=== PATIENT | male | born 1950 | race Caucasian/White ===

== ENCOUNTER 2020-03-18 19:12 | Inpatient (IN) | payer MEDICARE, MEDICAID ==
[2020-03-18] VITALS: BP 84/42
[~2020-03-18] VITALS: Ht 175.3 cm; Wt 89.9 kg
[2020-03-18 19:16] VITALS: BP 106/62
[2020-03-18] MEDS ORDERED: ZOLOFT100 MG PO (19:41)
[2020-03-18] MEDS ORDERED: VITAMIN D3-ALO1 EACH PO (19:41)
[2020-03-18] MEDS ORDERED: FLOMAX0.4 MG PO (19:41)
[2020-03-18] MEDS ORDERED: IPRAT-ALBUT 0.5-3 ML INH ×2 (19:42→23:32)
[2020-03-18] MEDS ORDERED: VENTOLIN HFA INH8 GM INH (19:43)
[2020-03-18] MEDS ORDERED: KRISTALOSE20 GM PO (19:43)
[2020-03-18] MEDS ORDERED: LOPERAMIDE2 MG PO (19:43)
[2020-03-18] MEDS ORDERED: ROXICODONE5 MG PO (19:43)
[2020-03-18] MEDS ORDERED: POTASSIUM20 PO (19:44)
[2020-03-18] MEDS ORDERED: PROTONIX40 M1 PO (19:44)
[2020-03-18] MEDS ORDERED: TOPROL XL50 MG PO (19:44)
[2020-03-18 19:53] LABS: ABSOLUTE LYMPHOCYTES 0.9 thou/uL (0.8-5.3); ABSOLUTE NEUTROPHILS 9.9 thou/uL (1.6-8.1); BASOPHILS 0.2 %; EOSINOPHILS 0.1 %; HEMATOCRIT 36.7 % (42.0-52.0); HEMOGLOBIN 12.4 gm/dL (14.0-18.0); LYMPHOCYTES 7.2 %; MCHC 33.9 g/dL (28.0-37.0); MCV 85.6 fL (80.0-100.0); MONOCYTES 8.7 %; MPV 9.2 fl. (7.2-11.1); NUCLEATED RBCS 0 /100WBC; PLATELET COUNT* 219 thou/uL (150-400); POLYS 83.8 %; RBC 4.28 mil/uL (4.50-6.00); RDW-CV 13.5 % (10.5-14.5); WBC 11.9 thou/uL (4.0-11.0)
[2020-03-18 19:58] LABS: APTT 33.4 Seconds (25.0-31.3); INR 1.1; PROTIME 11.7 Seconds (9.20-11.50)
[2020-03-18 20:04] LABS: CREATININE 2.3 mg/dL (0.6-1.3); POTASSIUM 4.2 mmol/L (3.5-5.1)
[2020-03-18 20:18] LABS: ALBUMIN 2.9 g/dL (3.4-5.0); CK-MB MASS 0.8 ng/mL (<0.5-3.6); TOTAL BILIRUBIN 0.6 mg/dL (<0.1-1.0); TOTAL PROTEIN 8.7 g/dL (6.4-8.2)
[2020-03-18 20:19] LABS: URINE BILIRUBIN NEGATIVE (Negative); URINE BLOOD 3+ (Negative); URINE COLOR YELLOW; URINE GLUCOSE-RANDOM NEGATIVE (Negative); URINE KETONES NEGATIVE (Negative); URINE NITRITE-REFLEX NEGATIVE (Negative); URINE PROTEIN 2+ (Negative); URINE SPECIFIC GRAVITY >= 1.030 (1.005-1.030); URINE UROBILINOGEN 0.2 E.U./dl (0.2-1.0)
[2020-03-18 20:20] LABS: URINE CLARITY HAZY; URINE LEUKOCYTES-REFLEX 2+ (Negative)
[2020-03-18 20:21] LABS: BACTERIA-REFLEX >30 Many /HPF (None Seen); CASTS None Seen /LPF (None Seen); CRYSTALS None Seen /LPF (None Seen); SQUAMOUS 0-3 Few /LPF (0-3); URINE RBC 3-10 Few /HPF (0-2)
[2020-03-18 21:36] VITALS: BP 119/53
[2020-03-18 23:00] VITALS: BP 97/54
[2020-03-18] MEDS ORDERED: TUSSIN100 MG/5 M PO (23:29)
[2020-03-18] MEDS ORDERED: VITAMIN D3250 MC1 PO (23:31)
[2020-03-18 23:43] LABS: HEMATOCRIT 30.6 % (42.0-52.0); MCV 85.2 fL (80.0-100.0); MPV 8.6 fl. (7.2-11.1); NUCLEATED RBCS 0 /100WBC; PLATELET COUNT* 168 thou/uL (150-400); RBC 3.59 mil/uL (4.50-6.00); RDW-CV 13.6 % (10.5-14.5); WBC 11.1 thou/uL (4.0-11.0)
[2020-03-18 23:45] LABS: HEMOGLOBIN 10.4 gm/dL (14.0-18.0)
[2020-03-18 23:56] LABS: ALBUMIN 2.2 g/dL (3.4-5.0); CALCIUM 7.5 mg/dL (8.5-10.1); POTASSIUM 3.8 mmol/L (3.5-5.1); TOTAL BILIRUBIN 0.4 mg/dL (<0.1-1.0); TOTAL PROTEIN 6.8 g/dL (6.4-8.2)
[2020-03-19] VITALS (7 sets, daily range): BP systolic 87–128; BP diastolic 47–85
[2020-03-19 00:28] LABS: ABSOLUTE BASOPHILS 0.2 thou/uL (0.0-0.2); ABSOLUTE LYMPHOCYTES 0.4 thou/uL (0.8-5.3); ABSOLUTE MONOCYTES 0.3 thou/uL (0.0-1.2); ABSOLUTE NEUTROPHILS 10.1 thou/uL (1.6-8.1)
[2020-03-19 00:29] LABS: CLUMPED PLTS FEW; PLATELET ESTIMATE ADEQUATE; TOXIC GRANULATION 1+
--- NOTE | 2020-03-19 11:00 | EKG ---
[place] [address] ELECTROCARDIOGRAM REPORT Name: JOVAN EUGENE Room: [address] ADM IN .R.#: [id number] Admission: 03/18/20 Attend Phys: Malcom Mckeon Discharge: Date of : 54 Date of Service: 03/18/201934 Report #: [id number] THIS REPORT FOR: //name// [facility] ED Test Date: 2020-03-18 Test Time: 19:35:16 Pat Name: JOVAN EUGENE Department: Room: [facility] Gender: M Service Desk Associate: LYLY : 1950 Requested By: Ebenezer Colbert Order Number: [id number] MD: Amari Sheppard Measurements Intervals [place] Rate: 87 P: 37 MO: 158 QRS: -59 QRSD: 101 T: 19 QT: 360 QTc: 433 Interpretive Statements Sinus rhythm Abnormal R-wave progression, late transition Inferior infarct, old No previous ECG available for comparison Electronically Signed On 03-19-2020 10:59:51 CDT by Amari Sheppard [email or web address] <ELECTRONICALLY SIGNED> By: Amari Sheppard MD, [facility] 03/19/20 1059 34 34 Amari Sheppard MD, [facility] /EPI
--- NOTE | 2020-03-19 18:50 | NUR ---
PT IS ALERT AND ORIENTED X 1 FEW WORDS SPOKEN RESTED T/O MORNING ATE HALF OF MEALS IV ABT GIVEN SB ON THE MONITOR WITH PVCS BLOOD PRESSURE ON THE LOWER END LSC BUT DIMINISHED 2L NC WHICH IS BASELINE PT DOES HAVE TREMORS IN BILAT EXT. 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
[2020-03-20] VITALS: BP 97/55
[2020-03-20 04:00] VITALS: BP 105/60
[2020-03-20 04:32] LABS: ABSOLUTE LYMPHOCYTES 0.6 thou/uL (0.8-5.3); ABSOLUTE MONOCYTES 0.4 thou/uL (0.0-1.2); ABSOLUTE NEUTROPHILS 9.9 thou/uL (1.6-8.1); BASOPHILS 0.1 %; HEMATOCRIT 33.9 % (42.0-52.0); HEMOGLOBIN 11.5 gm/dL (14.0-18.0); LYMPHOCYTES 5.2 %; MCH 29.2 pg (26.0-34.0); MCHC 33.9 g/dL (28.0-37.0); MCV 86.1 fL (80.0-100.0); MONOCYTES 3.9 %; MPV 9.7 fl. (7.2-11.1); NUCLEATED RBCS 0 /100WBC; PLATELET COUNT* 173 thou/uL (150-400); POLYS 90.8 %; RBC 3.93 mil/uL (4.50-6.00); WBC 10.9 thou/uL (4.0-11.0)
[2020-03-20 04:52] LABS: CREATININE 1.7 mg/dL (0.6-1.3); POTASSIUM 3.7 mmol/L (3.5-5.1)
[2020-03-20 08:00] VITALS: BP 116/51
[2020-03-20 12:00] VITALS: BP 104/64
--- NOTE | 2020-03-20 14:42 | NUR ---
CM CONTACTED THE PT'S DTR RAPHAEL TO DISCUSS HIS HOME SITUATION, DISCHARGE PLANNING, AND TO INFORM OF THE ROLE OF CM. PT'S DTR INFORMS THAT THE PT RESIDES AT [facility]. PT USES A WHEELCHAIR FOR MOBILITY. PT NORMALL ABLE TO FEED HIMSELF. PLAN IS FOR THE PT TO RETURN TO [facility] AT D/C. CM SPOKE TO ADMNISSIONS AT [facility] AND THEY INFORM THAT THE PT WILL NEED A COVID-19 TESTING PRIOR TO D/C. NURSING AND HOSPITALIST ARE AWARE. CM WILL REMAIN AVAILABLE TO ASSIST AND FOLLOW NEEDED.
[2020-03-20 16:00] VITALS: BP 93/52
--- NOTE | 2020-03-20 16:32 | NUR ---
ILDEFONSO received message from Shelbi in admissions at [facility] asking about updates for pt. SW faxed referral/updates information and noted that pt might be ready to dc tomorrow. SW to continue to follow to assist with safe dc planning. [facility] [phone] fax [phone]
--- NOTE | 2020-03-20 17:40 | NUR ---
PT RESTING IN BED THROUGHOUT SHIFT. PT REPOSTIONED FREQUENTLY. PT CONFUSED AND WILL ANSWER YES AND NO QUESTIONS APPROPRIATELT. GOOD APPETITE. PT FEEDS SELF. DTR AT BS THIS EVENING. ILEOSTOMY DRAINING LARGE AMT OF STOOL. PT INCONTINENT OF URINE. PVR HAS BEEN 100-200
[2020-03-20 21:17] VITALS: BP 89/53
[2020-03-21 00:29] VITALS: BP 94/54
[2020-03-21 04:28] VITALS: BP 107/65
[2020-03-21 04:58] LABS: ABSOLUTE LYMPHOCYTES 0.8 thou/uL (0.8-5.3); ABSOLUTE MONOCYTES 0.6 thou/uL (0.0-1.2); ABSOLUTE NEUTROPHILS 6.4 thou/uL (1.6-8.1); BASOPHILS 0.2 %; EOSINOPHILS 0.1 %; HEMATOCRIT 35.9 % (42.0-52.0); HEMOGLOBIN 11.9 gm/dL (14.0-18.0); LYMPHOCYTES 9.8 %; MCH 28.9 pg (26.0-34.0); MCV 87.5 fL (80.0-100.0); MONOCYTES 8.1 %; MPV 9.5 fl. (7.2-11.1); NUCLEATED RBCS 0 /100WBC; PLATELET COUNT* 193 thou/uL (150-400); POLYS 81.8 %; RBC 4.11 mil/uL (4.50-6.00); RDW-CV 14.4 % (10.5-14.5); WBC 7.8 thou/uL (4.0-11.0)
[2020-03-21 05:15] LABS: CALCIUM 8.8 mg/dL (8.5-10.1); CREATININE 1.9 mg/dL (0.6-1.3); POTASSIUM 3.7 mmol/L (3.5-5.1)
--- NOTE | 2020-03-21 05:42 | NUR ---
PATIENT REPORTED NO PAIN/NAUSEA WHEN ASKED. ALERT TO PERSON/PLACE. SMALL AMOUNT OF URINE/INCONTINENT CLEAR AND YELLOW. ILEOSTOMY CHECKED. RECEIVED ALL MEDS SCHEDULED. Q2 TURN, HOURLY ROUNDING. DIMINISHED LUNG SOUNDS. ON 2L O2. WILL CONTINUE TO FOLLOW PLAN OF CARE.
[2020-03-21 08:00] VITALS: BP 131/75
--- NOTE | 2020-03-21 11:24 | NUR ---
Pt in need of one more day of IV abx and second negative covid test result in order to dc back to [facility]. SW informed admissions at [facility] that pt likely to dc tomorrrow. SW to continue to follow to assist with finalizing safe dc plan. [facility] ph [phone]
[2020-03-21 12:00] VITALS: BP 100/63
[2020-03-21 16:00] VITALS: BP 87/62
--- NOTE | 2020-03-21 16:37 | NUR ---
PT RESTING IN BED THROUGHOUT SHIFT. PT REPOSITIONED FREQUENTLY. PT TOLERATING PO WELL. DRINKING ADEQUATE PO FLUIDS. INCONTINENT OF URINE. ILEOSTOMY DRAINING LIQUID BROWN STOOL. PT ANSWERS YES AND NO QUESTIONS APPROPRIATELY AND WILL CONVERSE APPROPRIATELY WITH STAFF. IVF INFUSING.
[2020-03-21 19:40] VITALS: BP 106/65
[2020-03-22] VITALS: BP 90/52
[2020-03-22 04:00] VITALS: BP 102/63
[2020-03-22 04:44] LABS: HEMATOCRIT 34.6 % (42.0-52.0); HEMOGLOBIN 11.3 gm/dL (14.0-18.0); MCH 28.6 pg (26.0-34.0); MCHC 32.8 g/dL (28.0-37.0); MCV 87.4 fL (80.0-100.0); MPV 9.1 fl. (7.2-11.1); NUCLEATED RBCS 0 /100WBC; PLATELET COUNT* 209 thou/uL (150-400); RBC 3.96 mil/uL (4.50-6.00); RDW-CV 14.5 % (10.5-14.5); WBC 7.3 thou/uL (4.0-11.0)
[2020-03-22 04:58] LABS: ALBUMIN 2.2 g/dL (3.4-5.0); CALCIUM 8.4 mg/dL (8.5-10.1); CREATININE 1.6 mg/dL (0.6-1.3); TOTAL BILIRUBIN 0.2 mg/dL (<0.1-1.0); TOTAL PROTEIN 6.7 g/dL (6.4-8.2)
--- NOTE | 2020-03-22 07:05 | NUR ---
Pt slept well this shift. Cooperative with assessment. Oriented to self. Forgetful. Illeostomy bag leaking and was replace. Pt took meds as ordered. Dr Doshi ordered heating pad and ice pack for patient. Not sure why. Will pass on to day RN for clarification. Fall precaution in place. Covid test negative. Anticipated dc back to [facility] today. Will continue to monitor.
[2020-03-22 07:58] LABS: ABSOLUTE EOSINOPHILS 0.1 thou/uL (0.0-0.7); ABSOLUTE LYMPHOCYTES 1.3 thou/uL (0.8-5.3); ABSOLUTE MONOCYTES 1.1 thou/uL (0.0-1.2); ABSOLUTE NEUTROPHILS 4.7 thou/uL (1.6-8.1); ANISOCYTOSIS 1+; PLATELET ESTIMATE ADEQUATE; POIKILOCYTOSIS 1+
[2020-03-22 08:00] VITALS: BP 103/60
[2020-03-22] MEDS ORDERED: CEFUROXIME500 MG PO (10:04)
[2020-03-22 11:35] VITALS: BP 103/60
--- NOTE | 2020-03-22 11:54 | NUR ---
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 CM faxed dc orders and covid test results. Chart copied. Nurse report number is [phone]. CM left a VM for Pt's dtr, Jackie, informing of dc.
--- NOTE | 2020-03-22 15:24 | NUR ---
ILDEFONSO spoke with pt and pt dtr prior to pt dc to discuss pt ready to dc today back to [facility]. ILDEFONSO spoke with pt nurse and with Shelbi in admissions at [facility] who are accepting pt back to facility. [facility] [phone]
--- NOTE | 2020-03-22 17:17 | NUR ---
PT. VSS, ALERT BUT LETHARGIC, DENIES PAIN, SR ON MONITOR. D/C ORDERS RECEIVED. REPORT CALLED TO GEOVANY ARELLANO OF SNF. D/S SUMMARY AND PACKET SENT WITH PT. IV D/BRIGIDO WITHOUT COMPLICATIONS. PT LEFT BY WC WITH TRANSPORT, WITH PERSONAL BELONGINGS. PT IN STABLE CONDITION AT TIME OF D/C.
== END 2020-03-22 13:30 | DRG 871 ==
LOC: M.ERS 19:12 → M.2W 20:31 → M.TBA-ER 20:31 → M.2W 21:40
PROVIDERS: Family Medicine; Internal Medicine; ADMIT Internal Medicine; ATTEND Internal Medicine
DX: A41.51 Sepsis due to Escherichia coli [E. coli] (principal); G92 Toxic encephalopathy; N39.0 Urinary tract infection, site not specified; N17.9 Acute kidney failure, unspecified; J44.1 Chronic obstructive pulmonary disease with (acute) exacerbation; E87.0 Hyperosmolality and hypernatremia; N18.9 Chronic kidney disease, unspecified; I12.9 Hypertensive chronic kidney disease with stage 1 through stage 4 chronic kidney disease, or unspecified chronic kidney disease; D64.9 Anemia, unspecified; B96.20 Unspecified Escherichia coli [E. coli] as the cause of diseases classified elsewhere; E87.8 Other disorders of electrolyte and fluid balance, not elsewhere classified; E86.0 Dehydration; R65.20 Severe sepsis without septic shock; Z99.81 Dependence on supplemental oxygen; Z87.01 Personal history of pneumonia (recurrent); Z86.73 Personal history of transient ischemic attack (TIA), and cerebral infarction without residual deficits; Z85.05 Personal history of malignant neoplasm of liver; Z79.899 Other long term (current) drug therapy; Z87.891 Personal history of nicotine dependence; Z93.2 Ileostomy status; Z03.818 Encounter for observation for suspected exposure to other biological agents ruled out

== ENCOUNTER 2020-11-22 09:34 | Inpatient (IN) | payer MEDICARE, MEDICAID ==
[~2020-11-22] VITALS: Ht 175.3 cm; Wt 93.9 kg
[~2020-11-22 09:34] MED LIST: CEFUROXIME500 MG PO; FLOMAX0.4 MG PO; IPRAT-ALBUT 0.5-3 ML INH; KRISTALOSE20 GM PO; LOPERAMIDE2 MG PO; POTASSIUM20 PO; PROTONIX40 M1 PO; ROXICODONE5 MG PO; TOPROL XL50 MG PO; TUSSIN100 MG/5 M PO; VENTOLIN HFA INH8 GM INH; VITAMIN D3-ALO1 EACH PO; VITAMIN D3250 MC1 PO; ZOLOFT100 MG PO
[2020-11-22 09:38] VITALS: BP 94/50
[2020-11-22 09:55] LABS: ABSOLUTE BASOPHILS 0.1 thou/uL (0.0-0.2); ABSOLUTE EOSINOPHILS 0.1 thou/uL (0.0-0.7); ABSOLUTE MONOCYTES 1.1 thou/uL (0.0-1.2); ABSOLUTE NEUTROPHILS 12.2 thou/uL (1.6-8.1); BASOPHILS 0.4 %; EOSINOPHILS 0.4 %; HEMATOCRIT 38.8 % (42.0-52.0); HEMOGLOBIN 12.6 gm/dL (14.0-18.0); LYMPHOCYTES 6.9 %; MCH 27.5 pg (26.0-34.0); MCHC 32.6 g/dL (28.0-37.0); MCV 84.4 fL (80.0-100.0); MONOCYTES 7.9 %; MPV 8.8 fl. (7.2-11.1); NUCLEATED RBCS 0 /100WBC; PLATELET COUNT* 333 thou/uL (150-400); POLYS 84.4 %; RBC 4.59 mil/uL (4.50-6.00); WBC 14.4 thou/uL (4.0-11.0)
--- NOTE | 2020-11-22 10:10 | EKG ---
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: [facility] : 1950 Requested By: Rich Alfonso Order Number: [id number] MD: Sonu Flaherty Measurements Intervals [place] Rate: 93 P: 54 VA: 161 QRS: -67 QRSD: 108 T: 64 QT: 388 QTc: 483 Interpretive Statements Sinus rhythm with pac Incomplete RBBB and LAFB Low voltage, precordial leads Consider anterior infarct Compared to ECG 03/18/2020 19:35:16 Low QRS voltage now present ST (T wave) deviation now present Myocardial infarct finding still present Electronically Signed On 11-22-2020 10:10:25 CDT by Sonu Flaherty [email or web address] <ELECTRONICALLY SIGNED> By: Sonu Flaherty MD, FACC 11/22/20 1010 0941 Sonu Flaherty MD, FAC /EPI
[2020-11-22 10:16] LABS: CALCIUM 9.4 mg/dL (8.5-10.1); CREATININE 4.4 mg/dL (0.6-1.3); POTASSIUM 3.6 mmol/L (3.5-5.1)
[2020-11-22 10:26] LABS: MAGNESIUM 2.9 mg/dL (1.8-2.4); TOTAL BILIRUBIN 0.4 mg/dL (<0.1-1.0); TOTAL PROTEIN 9.6 g/dL (6.4-8.2)
[2020-11-22 12:14] VITALS: BP 104/54
[2020-11-22 12:45] VITALS: BP 101/51
[2020-11-22 16:16] VITALS: BP 86/47
[2020-11-22 20:15] VITALS: BP 86/57
[2020-11-23 00:19] VITALS: BP 165/77
[2020-11-23 04:26] LABS: HEMATOCRIT 30.2 % (42.0-52.0); MCH 28.1 pg (26.0-34.0); MCHC 33.2 g/dL (28.0-37.0); MCV 84.5 fL (80.0-100.0); MPV 8.9 fl. (7.2-11.1); RBC 3.57 mil/uL (4.50-6.00); RDW-CV 14.1 % (10.5-14.5); WBC 9.1 thou/uL (4.0-11.0)
[2020-11-23 04:42] VITALS: BP 100/50
[2020-11-23 04:50] LABS: CALCIUM 8.8 mg/dL (8.5-10.1); MAGNESIUM 2.8 mg/dL (1.8-2.4); PHOSPHORUS* 7.6 mg/dL (2.5-4.9); POTASSIUM 3.6 mmol/L (3.5-5.1)
[2020-11-23 08:00] VITALS: BP 96/42
[2020-11-23 13:34] VITALS: BP 102/81
[2020-11-23 17:55] VITALS: BP 80/39
[2020-11-23 18:54] LABS: ALBUMIN 2.2 g/dL (3.4-5.0); CALCIUM 7.8 mg/dL (8.5-10.1); CREATININE 3.2 mg/dL (0.6-1.3); POTASSIUM 3.3 mmol/L (3.5-5.1); TOTAL BILIRUBIN 0.2 mg/dL (<0.1-1.0); TOTAL PROTEIN 7.1 g/dL (6.4-8.2)
[2020-11-23 23:47] VITALS: BP 86/48
[2020-11-24 04:00] VITALS: BP 105/41
[2020-11-24 04:50] LABS: ALBUMIN 1.8 g/dL (3.4-5.0); CALCIUM 7.6 mg/dL (8.5-10.1); CREATININE 3.2 mg/dL (0.6-1.3); POTASSIUM 3.4 mmol/L (3.5-5.1); TOTAL BILIRUBIN 0.2 mg/dL (<0.1-1.0); TOTAL PROTEIN 6.2 g/dL (6.4-8.2)
[2020-11-24 05:26] LABS: MAGNESIUM 2.1 mg/dL (1.8-2.4); PHOSPHORUS* 6.3 mg/dL (2.5-4.9)
[2020-11-24 08:00] VITALS: BP 90/38
[2020-11-24 12:26] VITALS: BP 97/44
[2020-11-24 16:03] VITALS: BP 85/49
[2020-11-24 20:00] VITALS: BP 95/41
[2020-11-25 00:31] VITALS: BP 88/42
[2020-11-25 03:43] VITALS: BP 134/57; BP 97/44
[2020-11-25 04:49] LABS: CALCIUM 7.6 mg/dL (8.5-10.1); CREATININE 2.8 mg/dL (0.6-1.3)
[2020-11-25 04:54] LABS: POTASSIUM 2.9 mmol/L (3.5-5.1)
[2020-11-25 09:10] VITALS: BP 99/59
[2020-11-25 16:13] VITALS: BP 85/40
[2020-11-25 20:47] VITALS: BP 95/68
[2020-11-26 00:16] VITALS: BP 94/45
[2020-11-26 05:25] VITALS: BP 97/49
[2020-11-26 09:00] VITALS: BP 110/44
[2020-11-26 12:51] LABS: CALCIUM 8.2 mg/dL (8.5-10.1); CREATININE 2.4 mg/dL (0.6-1.3); POTASSIUM 3.1 mmol/L (3.5-5.1)
[2020-11-26 12:56] VITALS: BP 99/53
[2020-11-26 17:30] VITALS: BP 92/46
[2020-11-26 19:41] VITALS: BP 96/43
[2020-11-27] VITALS (7 sets, daily range): BP systolic 92–107; BP diastolic 43–89
[2020-11-27 04:19] LABS: HEMATOCRIT 25.8 % (42.0-52.0); HEMOGLOBIN 8.5 gm/dL (14.0-18.0); MCH 28.3 pg (26.0-34.0); MCV 85.8 fL (80.0-100.0); MPV 7.9 fl. (7.2-11.1); RBC 3.01 mil/uL (4.50-6.00); RDW-CV 14.4 % (10.5-14.5); WBC 7.7 thou/uL (4.0-11.0)
[2020-11-27 04:37] LABS: CALCIUM 8.1 mg/dL (8.5-10.1); CREATININE 2.2 mg/dL (0.6-1.3); POTASSIUM 3.4 mmol/L (3.5-5.1)
[2020-11-28 04:00] VITALS: BP 94/53
[2020-11-28 04:49] LABS: CALCIUM 8.2 mg/dL (8.5-10.1); CREATININE 2.1 mg/dL (0.6-1.3); POTASSIUM 3.3 mmol/L (3.5-5.1)
[2020-11-28 07:30] VITALS: BP 116/68
== END 2020-11-28 18:07 | DRG 438 ==
LOC: M.ERS 09:34 → M.TBA-ER 10:45 → M.2W 10:45
PROVIDERS: Emergency Medicine Emergency Medical Services; Internal Medicine; ADMIT Internal Medicine; ATTEND Internal Medicine
DX: K85.90 Acute pancreatitis without necrosis or infection, unspecified (principal); N17.0 Acute kidney failure with tubular necrosis; R65.11 Systemic inflammatory response syndrome (SIRS) of non-infectious origin with acute organ dysfunction; N18.4 Chronic kidney disease, stage 4 (severe); C22.0 Liver cell carcinoma; N20.2 Calculus of kidney with calculus of ureter; E44.0 Moderate protein-calorie malnutrition; I12.9 Hypertensive chronic kidney disease with stage 1 through stage 4 chronic kidney disease, or unspecified chronic kidney disease; K76.0 Fatty (change of) liver, not elsewhere classified; K80.80 Other cholelithiasis without obstruction; R16.1 Splenomegaly, not elsewhere classified; M79.604 Pain in right leg; J44.9 Chronic obstructive pulmonary disease, unspecified; E87.6 Hypokalemia; K74.60 Unspecified cirrhosis of liver; Z20.822 Contact with and (suspected) exposure to COVID-19; Z93.2 Ileostomy status; Z87.01 Personal history of pneumonia (recurrent); Z86.73 Personal history of transient ischemic attack (TIA), and cerebral infarction without residual deficits; Z85.05 Personal history of malignant neoplasm of liver; Z79.899 Other long term (current) drug therapy; Z87.891 Personal history of nicotine dependence; Z99.3 Dependence on wheelchair; Z68.30 Body mass index [BMI] 30.0-30.9, adult

== ENCOUNTER 2021-01-21 17:39 | Inpatient (IN) | payer MEDICARE, MEDICAID ==
[~2021-01-21] VITALS: Ht 170.2 cm; Wt 79.4 kg
[2021-01-21 17:50] VITALS: BP 140/85
[2021-01-21 18:17] LABS: ABSOLUTE BASOPHILS 0.1 thou/uL (0.0-0.2); ABSOLUTE EOSINOPHILS 0.1 thou/uL (0.0-0.7); ABSOLUTE LYMPHOCYTES 1.5 thou/uL (0.8-5.3); ABSOLUTE MONOCYTES 0.8 thou/uL (0.0-1.2); ABSOLUTE NEUTROPHILS 6.2 thou/uL (1.6-8.1); BASOPHILS 1.2 %; EOSINOPHILS 1.3 %; HEMATOCRIT 33.2 % (42.0-52.0); HEMOGLOBIN 10.8 gm/dL (14.0-18.0); LYMPHOCYTES 16.9 %; MCH 28.3 pg (26.0-34.0); MCHC 32.4 g/dL (28.0-37.0); MCV 87.4 fL (80.0-100.0); MONOCYTES 9.1 %; MPV 7.9 fl. (7.2-11.1); NUCLEATED RBCS 0 /100WBC; PLATELET COUNT* 459 thou/uL (150-400); POLYS 71.5 %; WBC 8.6 thou/uL (4.0-11.0)
[2021-01-21 18:28] LABS: CALCIUM 9.4 mg/dL (8.5-10.1); CREATININE 1.9 mg/dL (0.6-1.3); POTASSIUM 5.3 mmol/L (3.5-5.1)
[2021-01-21 18:38] LABS: ALBUMIN 3.3 g/dL (3.4-5.0); MAGNESIUM 2.2 mg/dL (1.8-2.4); TOTAL BILIRUBIN 0.2 mg/dL (<0.1-1.0); TOTAL PROTEIN 9.9 g/dL (6.4-8.2)
[2021-01-21] MEDS ORDERED: XIFAXAN550 M1 PO (19:33)
[2021-01-21] MEDS ORDERED: LEVSIN0.125 MG PO (19:35)
[2021-01-21] MEDS ORDERED: MIDODRINE HCL 55 M1 PO (19:35)
[2021-01-21] MEDS ORDERED: ZOFRAN 4 MG ORAL4 MG PO (19:36)
[2021-01-21] MEDS ORDERED: ROBITUSSIN100 MG/53 PO (19:38)
[2021-01-21 20:05] VITALS: BP 112/32
[2021-01-21 21:00] VITALS: BP 127/69
[2021-01-22] VITALS: BP 134/71
[2021-01-22 04:42] VITALS: BP 107/63
[2021-01-22 04:50] LABS: HEMATOCRIT 30.3 % (42.0-52.0); HEMOGLOBIN 9.8 gm/dL (14.0-18.0); MCH 28.4 pg (26.0-34.0); MCHC 32.5 g/dL (28.0-37.0); MCV 87.3 fL (80.0-100.0); MPV 8.2 fl. (7.2-11.1); RBC 3.47 mil/uL (4.50-6.00); RDW-CV 16.9 % (10.5-14.5)
[2021-01-22 05:06] LABS: CALCIUM 8.9 mg/dL (8.5-10.1); CREATININE 1.7 mg/dL (0.6-1.3); POTASSIUM 4.7 mmol/L (3.5-5.1)
[2021-01-22 08:00] VITALS: BP 116/69
[2021-01-22 12:00] VITALS: BP 118/65
[2021-01-22 16:00] VITALS: BP 123/79
[2021-01-22 20:00] VITALS: BP 113/72; BP 156/53
[2021-01-23 01:14] VITALS: BP 101/65
[2021-01-23 05:00] LABS: ABSOLUTE BASOPHILS 0.1 thou/uL (0.0-0.2); ABSOLUTE EOSINOPHILS 0.1 thou/uL (0.0-0.7); ABSOLUTE LYMPHOCYTES 1.3 thou/uL (0.8-5.3); ABSOLUTE MONOCYTES 0.6 thou/uL (0.0-1.2); ABSOLUTE NEUTROPHILS 4.6 thou/uL (1.6-8.1); BASOPHILS 1.5 %; HEMATOCRIT 28.7 % (42.0-52.0); HEMOGLOBIN 9.6 gm/dL (14.0-18.0); LYMPHOCYTES 19.2 %; MCH 29.2 pg (26.0-34.0); MCHC 33.7 g/dL (28.0-37.0); MCV 86.8 fL (80.0-100.0); MONOCYTES 8.6 %; NUCLEATED RBCS 0 /100WBC; PLATELET COUNT* 366 thou/uL (150-400); POLYS 68.7 %; RDW-CV 16.4 % (10.5-14.5); WBC 6.7 thou/uL (4.0-11.0)
[2021-01-23 05:18] LABS: ALKALINE PHOSPHATASE 92 U/L (46-116); ANION GAP 12 mmol/L (7-16); BUN 39 mg/dL (7-18); CALCIUM 9.1 mg/dL (8.5-10.1); CHLORIDE 101 mmol/L (98-107); CO2 16 mmol/L (21-32); CREATININE 1.4 mg/dL (0.6-1.3); GLUCOSE 92 mg/dL (70-99); POTASSIUM 5.2 mmol/L (3.5-5.1); SGOT 32 U/L (15-37); SGPT 29 U/L (30-65); SODIUM 129 mmol/L (136-145); TOTAL BILIRUBIN 0.3 mg/dL (<0.1-1.0); TOTAL PROTEIN 8.7 g/dL (6.4-8.2); TROPONIN-I LEVEL <0.06 ng/mL (<0.06)
[2021-01-23 05:59] VITALS: BP 129/62
[2021-01-23 08:00] VITALS: BP 137/72
[2021-01-23 11:54] VITALS: BP 99/64
--- NOTE | 2021-01-23 11:58 | EKG ---
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 Cutter: : 1950 Requested By: Rich Alfonso Order Number: [id number] MD: Néstor Ta Measurements Intervals [place] Rate: 84 P: 56 IA: 155 QRS: -74 QRSD: 94 T: 55 QT: 369 QTc: 437 Interpretive Statements Sinus rhythm Left anterior fascicular block Low voltage, precordial leads Consider anterior infarct Compared to ECG 11/22/2020 09:41:46 ST (T wave) deviation now present Atrial premature complex(es) no longer present Incomplete right bundle-branch block no longer present Right bundle-branch block no longer present Electronically Signed On 01-23-2021 11:58:29 CDT by Néstor Ta [email or web address] <ELECTRONICALLY SIGNED> By: Néstor Ta MD, [facility] 01/23/21 1158 1743 1743 Néstor Ta MD, [facility] /EPI
== END 2021-01-23 15:30 | DRG 189 ==
LOC: M.ERS 17:39 → M.2W 18:50 → M.TBA-ER 18:50 → M.2W 19:25
PROVIDERS: Emergency Medicine Emergency Medical Services; Internal Medicine; ADMIT Family Medicine; ATTEND Family Medicine
DX: J96.01 Acute respiratory failure with hypoxia (principal); N17.9 Acute kidney failure, unspecified; E87.1 Hypo-osmolality and hyponatremia; N18.4 Chronic kidney disease, stage 4 (severe); R07.89 Other chest pain; E87.5 Hyperkalemia; I12.9 Hypertensive chronic kidney disease with stage 1 through stage 4 chronic kidney disease, or unspecified chronic kidney disease; Z20.822 Contact with and (suspected) exposure to COVID-19; Z93.2 Ileostomy status; Z86.73 Personal history of transient ischemic attack (TIA), and cerebral infarction without residual deficits; Z85.05 Personal history of malignant neoplasm of liver; Z79.899 Other long term (current) drug therapy

== ENCOUNTER 2021-01-24 17:04 | Inpatient (IN) | payer MEDICARE, MEDICAID ==
[~2021-01-24] VITALS: Ht 177.8 cm; Wt 80.9 kg
[~2021-01-24 17:04] MED LIST changes: +LEVSIN0.125 MG PO; +MIDODRINE HCL 55 M1 PO; +ROBITUSSIN100 MG/53 PO; +XIFAXAN550 M1 PO; +ZOFRAN 4 MG ORAL4 MG PO
[2021-01-24 17:08] VITALS: BP 113/79
--- NOTE | 2021-01-24 17:34 | NUR ---
SPOKE WITH PT'S JANETH LIM REGARDING PT ARRIVAL TO ER. CAN BE REACHED AT [phone]
[2021-01-24 17:41] LABS: ABSOLUTE BASOPHILS 0.2 thou/uL (0.0-0.2); ABSOLUTE EOSINOPHILS 0.2 thou/uL (0.0-0.7); ABSOLUTE LYMPHOCYTES 1.3 thou/uL (0.8-5.3); ABSOLUTE MONOCYTES 0.7 thou/uL (0.0-1.2); ABSOLUTE NEUTROPHILS 5.5 thou/uL (1.6-8.1); BASOPHILS 2.3 %; EOSINOPHILS 2.2 %; HEMATOCRIT 32.1 % (42.0-52.0); HEMOGLOBIN 10.7 gm/dL (14.0-18.0); LYMPHOCYTES 16.9 %; MCH 28.5 pg (26.0-34.0); MCHC 33.3 g/dL (28.0-37.0); MCV 85.7 fL (80.0-100.0); MONOCYTES 8.5 %; MPV 7.6 fl. (7.2-11.1); NUCLEATED RBCS 0 /100WBC; POLYS 70.1 %; RBC 3.75 mil/uL (4.50-6.00); RDW-CV 16.7 % (10.5-14.5); WBC 7.9 thou/uL (4.0-11.0)
[2021-01-24 17:42] LABS: PLATELET COUNT* 443 thou/uL (150-400)
[2021-01-24 17:48] LABS: CALCIUM 8.8 mg/dL (8.5-10.1); CREATININE 1.6 mg/dL (0.6-1.3); POTASSIUM 4.5 mmol/L (3.5-5.1)
[2021-01-24 17:53] LABS: ALBUMIN 3.3 g/dL (3.4-5.0); TOTAL BILIRUBIN 0.3 mg/dL (<0.1-1.0); TOTAL PROTEIN 9.3 g/dL (6.4-8.2)
[2021-01-24 22:05] VITALS: BP 117/68
[2021-01-24 23:59] VITALS: BP 95/66
--- NOTE | 2021-01-25 05:04 | NUR ---
RECEIVED PT FROM ED PER CART AT APPROX 2155. PT IS AWAKE, ORIENTED TO SELF AND PLACE. PT IS NOT IN DISTRESS, NO DESATURATIONS NOTED ON ROOM AIR. 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 PT COMPLAINED OF ABDOMINAL PAIN BUT IS NOT ABLE TO RATE PAIN, PT JUST MOANS AND GROANS. PAIN MEDS GIVEN PER MAR WITH RELIEF. ILEOSTOMY NOTED, APPLIANCE INTACT. 2 DRAINS NOTED ON LEFT FLANK- DRAINING TO PURULENT OUTPUT. HIGH FALL PRECAUTIONS IN PLACE. CALL LIGHT WITHIN REACH. HOURLY ROUNDING DONE FOR PT SAFETY.
[2021-01-25 05:07] VITALS: BP 105/62
[2021-01-25 12:41] VITALS: BP 110/65
[2021-01-25 13:54] LABS: URINE CLARITY TURBID; URINE COLOR RED
[2021-01-25 13:56] LABS: ACETEST (KETONE CONFIRMATORY) Moderate (Negative); ICTOTEST (BILI CONFIRMATORY) Positive (Negative)
[2021-01-25 13:57] LABS: URINE SPECIFIC GRAVITY 1.015 (1.005-1.030)
[2021-01-25 13:58] LABS: BACTERIA 1-9 Few /HPF (None Seen); CASTS None Seen /LPF (None Seen); SQUAMOUS 0-3 Few /LPF (0-3); URINE RBC 0-2 Rare /HPF (0-2); URINE WBC 0-5 Rare /HPF (0-5)
[2021-01-25 13:59] LABS: AMORPHOUS URATES Many /LPF (None Seen); CRYSTALS None Seen /LPF (None Seen)
--- NOTE | 2021-01-25 14:57 | EKG ---
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 : 1950 Requested By: Krystle Chao Order Number: [id number] MD: Sonu Flaherty Measurements Intervals [place] Rate: 106 P: 53 ME: 151 QRS: -81 QRSD: 98 T: 60 QT: 339 QTc: 451 Interpretive Statements Sinus tachycardia Left anterior fascicular block Low voltage, precordial leads Abnormal R-wave progression, early transition Consider anterior infarct Compared to ECG 01/21/2021 17:43:39 Sinus rhythm no longer present Myocardial infarct finding still present Electronically Signed On 01-25-2021 14:56:51 CDT by Sonu Flaherty [email or web address] <ELECTRONICALLY SIGNED> By: Sonu Flaherty MD, [facility] 01/25/21 1456 1738 1738 Soun Falherty MD, [facility] /EPI
--- NOTE | 2021-01-25 16:06 | NUR ---
JASON dc from hospital yesterday back to [facility], Pt is a resident there. Plan is back to LTC at pr. Pt is [place]. JASON spoke with Shelbi at LT, she informed that family wants to continue aggressive treatment and informed that Pt is a Full Code. Per Shelbi, Pt has been in the hospital at the following facilities: [facility] 11/22-11/28 01/05-01/16 [facility] 01/21-1 [facility] 01/24- JASON updated Dr. Persaud ordered. Following [facility] p:[phone] f:[phone]
[2021-01-25 23:33] VITALS: BP 102/56
[2021-01-26] VITALS (7 sets, daily range): BP systolic 103–114; BP diastolic 53–69
[2021-01-26 04:43] LABS: ABSOLUTE BASOPHILS 0.1 thou/uL (0.0-0.2); ABSOLUTE EOSINOPHILS 0.1 thou/uL (0.0-0.7); ABSOLUTE LYMPHOCYTES 1.4 thou/uL (0.8-5.3); ABSOLUTE MONOCYTES 0.6 thou/uL (0.0-1.2); ABSOLUTE NEUTROPHILS 3.4 thou/uL (1.6-8.1); BASOPHILS 1.3 %; EOSINOPHILS 2.3 %; HEMATOCRIT 26.6 % (42.0-52.0); HEMOGLOBIN 8.8 gm/dL (14.0-18.0); LYMPHOCYTES 25.5 %; MCHC 33.1 g/dL (28.0-37.0); MCV 87.6 fL (80.0-100.0); MONOCYTES 10.6 %; MPV 7.8 fl. (7.2-11.1); NUCLEATED RBCS 0 /100WBC; POLYS 60.3 %; RBC 3.04 mil/uL (4.50-6.00); RDW-CV 16.8 % (10.5-14.5); WBC 5.7 thou/uL (4.0-11.0)
[2021-01-26 04:47] LABS: PLATELET COUNT* 292 thou/uL (150-400)
--- NOTE | 2021-01-26 04:53 | NUR ---
PT ALERT ORIENTED. EXPRESIVE APHASIA. TURN Q 2 HRS. ILEOSTOMY PUTTING OUT LARGE AMTS OF BROWN LIQUID. BAG LEAKED AND OSTOMY APPLIANCE CHGD ONCE. INCONT OF URINE. NEPHROSTOMY TUBE WITH PURULENT MARINA AND DRAIN WITH PINK. DRSG CHGD. FLUSHED WITH NS. PILLS CRUSHED IN PUDDING OR APPLE SAUCE. TELEMETRY SHOWS SR.
[2021-01-26 05:10] LABS: ALBUMIN 2.7 g/dL (3.4-5.0); CALCIUM 8.6 mg/dL (8.5-10.1); CREATININE 1.5 mg/dL (0.6-1.3); POTASSIUM 4.3 mmol/L (3.5-5.1); TOTAL BILIRUBIN 0.2 mg/dL (<0.1-1.0); TOTAL PROTEIN 7.6 g/dL (6.4-8.2)
[2021-01-26 07:06] LABS: ANISOCYTOSIS 1+; PLATELET ESTIMATE ADEQUATE; POIKILOCYTOSIS 1+
--- NOTE | 2021-01-26 08:34 | NUR ---
ASSUMED CARE OF PT THIS AM AROUND 07- INTEGRITY CONSULTANT IN PLACE ORDERED, TRACING SR- UPON ASSESSMENT PT NOTED TO ELIANE RESTING IN BED- PT A&O X2-3 WITH NOTED FORGETFULLNESS- EXPRESSIVE APHASIA NOTED- INCONT OF BLADDER, ILEOSTOMY NOTED INTACT WITH BROWN/YELLOW LIQUID STOOL-Q2 HOUR TURNS IN PLACE INDICATED- LEFT FLANK NEPHRO TUBE NOTED INTACT WITH PURULENT DRAINAGE NOTED; LEFT FLANK JORDI DRAIN NOTED INTACT WITH SERIOUSSANGUOUS DRAINGE NOTED- ABD SOFT/ROUND/NON- TEDER, BS X 4QUADS- IV NOTED TO RIGHT AC INTACT, IVF INFUSSING PRESCRIBED- SET UP ASSIST REQUIRED WITH MEALS, FAIR PO INTAKE NOTED- PT DENIES ANY C/O PAIN- CALL LIGHT AND PERSONAL BELONGINGS WITH IN REACH- HOURLY ROUNDS IN PLACE R/T SAFETY/NEEDS- ALL NEEDS MET AT THIS TIME
--- NOTE | 2021-01-26 13:36 | NUR ---
Anticipate dc back to [facility] this weekend. CM spoke with Pt's dtr and informed of potential dc back. CM updated Shelbi with Admissions. Faxed clinicals. Transportation will need to be arranged through [facility] [phone]. Chart will need to be copied. Nurse report number is [phone], fax is [phone].
--- NOTE | 2021-01-26 15:14 | NUR ---
I have reviewed the documentation by JACQUES ARGUETA from 01/26/21 to 01/26/21 and I concur with it. CARMELITA HUTTON
[2021-01-27 04:36] VITALS: BP 100/55
--- NOTE | 2021-01-27 06:04 | NUR ---
PT IS ABLE TO COMMUNICATE HIS NEEDS TO STAFF WITH MINOR DIFFICULTIES; HE SEEMS TO HAVE SOME EXPRESSIVE APHASIA AND POSSIBLY SOME COGNITIVE DIFFICULTIES. HE HAS DENIED THE NEED FOR PAIN MEDICATION UP TO THIS TIME. DRAIN, NEPHROSTOMY, AND ILEOSTOMY ALL PATENT UP TO THIS TIME.
[2021-01-27 08:00] VITALS: BP 120/66
[2021-01-27] MEDS ORDERED: CIPRO500 M1 PO (11:16)
[2021-01-27] MEDS ORDERED: FLAGYL500 M1 PO (11:16)
[2021-01-27 12:00] VITALS: BP 97/57
[2021-01-27 19:29] VITALS: BP 101/52
[2021-01-27 21:04] VITALS: BP 105/50
[2021-01-28 00:29] VITALS: BP 86/53
[2021-01-28 05:18] VITALS: BP 88/51
--- NOTE | 2021-01-28 05:49 | NUR ---
PT IS ABLE TO COMMUNICATE HIS NEEDS TO STAFF WITH MINOR DIFFICULTY; HE HAS SOME EXPRESSIVE APHASIA AND COGNITIVE ISSUES. HE HAS DENIED THE NEED FOR PAIN MEDICATION UP TO THIS TIME. POSSIBLE DISCHARGE SOON; HAS ORDERS, BUT PLACEMENT IS YET TO BE DETERMINED.
--- NOTE | 2021-01-28 07:25 | NUR ---
CHANGE OF SHIFT BEDSIDE REPORT GIVEN PATIENT SEEN AT BESIDE, IN BED WATCHING TV ASSUMED PATIENT CARE
[2021-01-28 08:00] VITALS: BP 109/42
[2021-01-28 09:35] VITALS: BP 109/42
--- NOTE | 2021-01-28 14:10 | NUR ---
patient discharged back to SNF, jair report called and given to beto discharge instruction given, acknowledged, copies given iv and heart monitor removed personal belongings returned family notified [facility] here via stretcher
== END 2021-01-28 14:03 | DRG 445 ==
LOC: M.ERS 17:04 → M.2W 19:46 → M.TBA-ER 19:46 → M.2W 21:03
PROVIDERS: Physician Assistant; Surgery; ADMIT Internal Medicine; ATTEND Internal Medicine
DX: K80.42 Calculus of bile duct with acute cholecystitis without obstruction (principal); E87.1 Hypo-osmolality and hyponatremia; N17.9 Acute kidney failure, unspecified; K86.1 Other chronic pancreatitis; Z85.05 Personal history of malignant neoplasm of liver; K86.9 Disease of pancreas, unspecified; I12.9 Hypertensive chronic kidney disease with stage 1 through stage 4 chronic kidney disease, or unspecified chronic kidney disease; J44.9 Chronic obstructive pulmonary disease, unspecified; N18.30 Chronic kidney disease, stage 3 unspecified; Z20.822 Contact with and (suspected) exposure to COVID-19; Z86.73 Personal history of transient ischemic attack (TIA), and cerebral infarction without residual deficits; Z93.2 Ileostomy status; Z79.899 Other long term (current) drug therapy